=== PATIENT | female | born 1955 | race Caucasian/White ===

== ENCOUNTER → 2016-07-13 | Outpatient (CLI) | payer OTHER | LOC: US 14:32 | DX: N18.3 Chronic kidney disease, stage 3 (moderate) (principal); Q60.0 Renal agenesis, unilateral ==

== ENCOUNTER → 2016-07-24 | Outpatient (CLI) | payer OTHER | LOC: KOH-I 12:03 | DX: N20.9 Urinary calculus, unspecified (principal) | CPT/HCPCS: 74000 ==